=== PATIENT | male | born 1950 | race Caucasian/White ===

== ENCOUNTER 2018-11-25 09:18 | Emergency (ER) | payer OTHER, MEDICARE ==
[~2018-11-25] VITALS: Ht 170.2 cm; Wt 72.6 kg
[~2018-11-25 09:18] MED LIST: ALLEGRA ALLERG180 MG PO; ASPIRIN EC325 M1 PO; BENICAR20 MG PO; CADUET 10 MG-81 EACH PO; CIPROFLOXACIN500 M1 PO; FISH OIL 1,001000 MG; MULTIVITAMINS1 EAC7; NORCO 5-325 TA1 EACH PO; ULTRAM 50MG TAB50 MG PO
[2018-11-25 10:15] VITALS: BP 141/75
[2018-11-25] MEDS ORDERED: KEFLEX500 M1 PO (10:25)
== END 2018-11-25 10:15 | disposition home or self-care (01) ==
LOC: ER 09:18
DX: L25.9 Unspecified contact dermatitis, unspecified cause (principal); F17.210 Nicotine dependence, cigarettes, uncomplicated; Z88.2 Allergy status to sulfonamides

== ENCOUNTER → 2019-09-27 | Outpatient (CLI) | payer OTHER, MEDICARE ==
[~2019-09-27] MED LIST changes: +KEFLEX500 M1 PO
== END ==
LOC: SJCVC 11:21
DX: I21.29 ST elevation (STEMI) myocardial infarction involving other sites (principal); R94.31 Abnormal electrocardiogram [ECG] [EKG]; I25.10 Atherosclerotic heart disease of native coronary artery without angina pectoris; I65.23 Occlusion and stenosis of bilateral carotid arteries; I10 Essential (primary) hypertension; E78.00 Pure hypercholesterolemia, unspecified; F17.200 Nicotine dependence, unspecified, uncomplicated; F10.21 Alcohol dependence, in remission; Z95.5 Presence of coronary angioplasty implant and graft; Z79.82 Long term (current) use of aspirin; Z79.899 Other long term (current) drug therapy

== ENCOUNTER → 2020-07-16 | Outpatient (CLI) | payer OTHER, MEDICARE | LOC: SJCVCIMAG 09:44 | PROVIDERS: ATTEND Internal Medicine Cardiovascular Disease | DX: I65.23 Occlusion and stenosis of bilateral carotid arteries (principal) ==

== ENCOUNTER → 2021-05-01 | Outpatient (CLI) | payer OTHER, MEDICARE | LOC: SJCVC 13:34 | PROVIDERS: ATTEND Internal Medicine Cardiovascular Disease | DX: R94.31 Abnormal electrocardiogram [ECG] [EKG] (principal); I25.10 Atherosclerotic heart disease of native coronary artery without angina pectoris; I10 Essential (primary) hypertension; E78.00 Pure hypercholesterolemia, unspecified; I65.23 Occlusion and stenosis of bilateral carotid arteries; F41.9 Anxiety disorder, unspecified; F32.9 Major depressive disorder, single episode, unspecified; F17.200 Nicotine dependence, unspecified, uncomplicated; Z79.899 Other long term (current) drug therapy; Z79.82 Long term (current) use of aspirin; Z88.0 Allergy status to penicillin ==